=== PATIENT | female | born 1995 | race African-American/Black ===

== ENCOUNTER 2016-11-07 20:21 | Emergency (ER) | payer BC, OTHER | END 2016-11-08 01:40 | disposition home or self-care (01) | LOC: ER1 20:21 | DX: S80.861A Insect bite (nonvenomous), right lower leg, initial encounter (principal); W57.XXXA Bitten or stung by nonvenomous insect and other nonvenomous arthropods, initial encounter; F17.210 Nicotine dependence, cigarettes, uncomplicated | CPT/HCPCS: 87081; 87880; 99283 ==